=== PATIENT | male | born 1985 | race Caucasian/White ===

== ENCOUNTER 2024-10-25 17:28 | Emergency (ER) | payer OTHER ==
[~2024-10-25] VITALS: Ht 177.8 cm; Wt 80.0 kg
[2024-10-25 17:33] VITALS: BP 159/113; PULSE 70; RESP 16; TEMP 36.7; O2SAT 99
[2024-10-25] MEDS ORDERED: LORAZEPAM 1MG TABLET PO ONE (18:15)
== END 2024-10-25 19:02 | disposition left against medical advice (07) ==
LOC: ER 17:28 → CMPBEDREQ 10-26 19:22
DX: I10 Essential (primary) hypertension (principal); Z88.0 Allergy status to penicillin
CPT/HCPCS: 93005; 99283